=== PATIENT | male | born 1960 | race Caucasian/White ===

== ENCOUNTER 2016-08-03 14:30 | Emergency (ER) | payer OTHER ==
[2016-08-03 15:26] VITALS: BMI 24.6
[2016-08-03] MEDS ORDERED: ACETAMINOPHEN 1000 MG/100 ML VIAL (NON FORMULARY) IVPB ONE (16:10)
--- NOTE | 2016-08-03 16:23 | PDOC ---
History of Present Illness - History of Present Illness Initial Comments: 08/03/16 16:30 55-year-old male with past medical history of hypertension, alcohol abuse, acid reflux, liver disease, constipation, anxiety, gout, dementia, COPD, seizure disorder, sent from [place] for g-tube replacement. Patient is noted to be febrile on ED arrival. Remainder of patient's history is limited by secondary to his chronic medical conditions. <Brenna Grissom - Last Filed: 08/03/16 16:30> - General History Source: Intermediate Records Exam Limitations: No Limitations <Mack Agudelo - Last Filed: 08/03/16 19:10> - General Chief Complaint: G Tube Problem Stated Complaint: G TUBE PROBLEM Time Seen by Provider: 08/03/16 16:08 Past History <Brenna Grissom - Last Filed: 08/03/16 16:30> - Past Medical History Cardiac Disorders: Yes (artherosclerosis heart disease) COPD: Yes Dementia: Yes GI Disorders: Yes (gerd,hepatic failure, costipation) HTN: Yes Psychiatric Problems: Yes (bipolar, anxiety,depression) Seizures: Yes (convultions) Other medical history: etoh dependence,gout,seborrheic dermatitis - Psycho/Social/Smoking Cessation Hx Anxiety: No Suicidal Ideation: No Smoking History: Unknown if ever smoked Have you smoked in the past 12 months: No Information on smoking cessation initiated: No Hx Alcohol Use: No Drug/Substance Use Hx: No Substance Use Type: None <Mack Agudelo - Last Filed: 08/03/16 19:10> - Past Medical History Allergies/Adverse Reactions: Allergies Allergy/AdvReac Type Severity Reaction Status Date / Time Penicillins Allergy Verified 08/03/16 15:26 Home Medications: Ambulatory Orders Acetaminophen [Tylenol] 650 mg GT Q4H PRN 08/03/16 Albuterol 0.083% Nebulizer Angeline [Ventolin 0.083%] 1 neb NEB Q4H PRN 08/03/16 Aspirin [Hector Chewable] 81 mg GT DAILY 08/03/16 Clonazepam [Klonopin] 1 mg GT BID 08/03/16 Diltiazem [Cardizem -] 60 mg GT BID 08/03/16 Enalapril Maleate 5 mg GT DAILY 08/03/16 Ferrous Sulfate *Liquid* [Feosol] 7.5 ml GT DAILY 08/03/16 Guaifenesin [Caroline-Tussin] 200 mg GT Q6H PRN 08/03/16 Hydralazine HCl 50 mg GT TID 08/03/16 Lactulose 10 gm GT TID 08/03/16 Magnesium Hydroxide [Milk of Magnesia] 30 ml GT DAILY PRN 08/03/16 Metoprolol Tartrate 25 mg GT BID 08/03/16 Omeprazole Magnesium [Prilosec] 40 mg GT DAILY 08/03/16 Phosphorus #1 [Phospha 250 Neutral Tablet] 250 mg GT DAILY 08/03/16 Sodium Phosphate/Na Biphos [Fleet Adult Rectal Enema -] 133 ml RC DAILY PRN Thiamine HCl [B-1] 100 mg GT DAILY 08/03/16 Valproate Sodium Liquid [Depakene] 500 mg GT Q6H 08/03/16 Review of Systems - Review of Systems Able to Perform ROS?: No Comments:: 08/03/16 16:40 Unable to obtain ROS secondary to patient's chronic medical conditions. <Brenna Grissom - Last Filed: 08/03/16 16:30> *Physical Exam - Vital Signs Last Vital Signs Temp Pulse Resp BP Pulse Ox 100.7 F H 126 H 18 170/134 100 08/03/16 14:30 08/03/16 14:30 08/03/16 14:30 08/03/16 14:30 08/03/16 14:30 - Physical Exam Comments: 08/03/16 16:40 GENERAL: Awake and alert, at baseline mental status. Warm to touch. HEAD: No signs of trauma EYES: PERRLA, EOMI, sclera anicteric, conjunctiva clear ENT: Auricles normal inspection, hearing grossly normal, nares patent, oropharynx clear without exudates. Moist mucosa NECK: Normal ROM, supple, no lymphadenopathy, JVD, or masses LUNGS: Breath sounds equal, clear to auscultation bilaterally. No wheezes, and no crackles. HEART: Tachycardic rate, regular rate, normal S1 and S2, no murmurs, rubs or gallops. ABDOMEN: Soft, nontender, normoactive bowel sounds. No guarding, no rebound. PEG site clean, dry, intact. PEG in place. EXTREMITIES: Normal range of motion, no edema. No clubbing or cyanosis. No cords, erythema, or tenderness NEUROLOGICAL: Cranial nerves II through XII grossly intact. Gait deferred. SKIN: Warm, Dry, normal turgor, no rashes or lesions noted. <Brenna Grissom - Last Filed: 08/03/16 16:30> - Vital Signs Last Vital Signs Temp Pulse Resp BP Pulse Ox 100.7 F H 126 H 18 170/134 100 08/03/16 14:30 08/03/16 14:30 08/03/16 14:30 08/03/16 14:30 08/03/16 14:30 <Mack Agudelo - Last Filed: 08/03/16 19:10> Heart Score/ECG Review #1 ECG reviewed & interpreted by me at: 15:00 08/03/16 16:17 NSR 119, submm STD I, V4-V6, no LISA, left axis deviation, QTC 452 msec <Mack Agudelo - Last Filed: 08/03/16 19:10> ED Treatment Course - LABORATORY CBC & Chemistry Diagram: 08/03/16 16:35 08/03/16 16:35 - RADIOLOGY Radiology Studies Ordered: Category Date Time Status CHEST X-RAY PORTABLE* [RAD] Stat Radiology 08/03/16 16:09 Ordered <Mack Agudelo - Last Filed: 08/03/16 19:10> Medical Decision Making - Medical Decision Making 08/03/16 16:18 A portion of this note was documented by scribe services under my direction. I have reviewed the details of the note, within reason, and agree with the documentation with the following case summary and management plan written by me. Patient treated in the ED. Nursing notes are reviewed and incorporated into the medical decision-making. Vital signs reviewed. Peripheral IV access obtained by the nurse, laboratory studies are drawn and sent, reviewed and interpreted by myself. Vital Signs Temp Pulse Resp BP Pulse Ox 100.7 F H 126 H 18 170/134 100 08/03/16 14:30 08/03/16 14:30 08/03/16 14:30 08/03/16 14:30 08/03/16 14:30 55-year-old male with past medical history of hypertension, alcohol abuse, acid reflux, liver disease, constipation, anxiety, gout, dementia, COPD, seizure disorder, presents with G-tube replacement. However, upon arrival, patient is noted to have a temperature 100.7 degrees. We'll need to initiate adult sepsis protocol. Patient's history is limited by secondary to his chronic medical conditions. Differential includes occult pneumonia, urine tract infection, other infectious etiology. Reassess. 08/03/16 19:01 CBC, BMP 08/03/16 16:35 08/03/16 16:35 CMP Sodium 142 mmol/L (136-145) 08/03/16 16:35 Potassium 3.8 mmol/L (3.5-5.1) 08/03/16 16:35 Chloride 102 mmol/L (98-107) 08/03/16 16:35 Carbon Dioxide 31 mmol/L (21-32) 08/03/16 16:35 Anion Gap 9 (8-16) 08/03/16 16:35 BUN 9 mg/dL (7-18) 08/03/16 16:35 Creatinine 0.5 mg/dL (0.7-1.3) L 08/03/16 16:35 Creat Clearance w eGFR > 60 (>60) 08/03/16 16:35 Random Glucose 67 mg/dL (74-106) L 08/03/16 16:35 Lactic Acid 0.869 mmol/L (0.4-2.0) 08/03/16 16:35 Calcium 8.9 mg/dL (8.5-10.1) 08/03/16 16:35 Total Bilirubin 0.7 mg/dL (0.2-1.0) 08/03/16 16:35 AST 37 U/L (15-37) 08/03/16 16:35 ALT 18 U/L (12-78) 08/03/16 16:35 Alkaline Phosphatase 88 U/L (45-117) 08/03/16 16:35 Ammonia 39.37 umol/L (11-32) H 08/03/16 16:35 Creatine Kinase 550 IU/L (39-308) H 08/03/16 16:35 Creatine Kinase Index 2.0 % (0.0-5.0) 08/03/16 16:35 CK-MB (CK-2) 10.845 ng/ml (0.5-3.6) H 08/03/16 16:35 Troponin I 0.05 ng/ml (0.00-0.05) 08/03/16 16:35 Total Protein 7.6 g/dl (6.4-8.2) 08/03/16 16:35 Albumin 2.7 g/dl (3.4-5.0) L 08/03/16 16:35 Urine Test Results Urine Color Yellow 08/03/16 15:00 Urine Appearance Clear 08/03/16 15:00 Urine pH 8.0 (5.0-8.0) 08/03/16 15:00 Ur Specific Mohawk 1.011 (1.001-1.035) 08/03/16 15:00 Urine Protein 2+ (NEGATIVE) H 08/03/16 15:00 Urine Glucose (UA) Negative (NEGATIVE) 08/03/16 15:00 Urine Ketones Trace (NEGATIVE) H 08/03/16 15:00 Urine Blood 1+ (NEGATIVE) H 08/03/16 15:00 Urine Nitrite Negative (NEGATIVE) 08/03/16 15:00 Urine Bilirubin Negative (NEGATIVE) 08/03/16 15:00 Ur Leukocyte Esterase Negative (NEGATIVE) 08/03/16 15:00 Chest xray reviewed by me, pending official radiology read. No acute findings. GT replaced with 16 slovenian. Placement confirmed by me on abdominal xray with gastrograffin. Given that workup is negative, pt may potentially be having a viral syndrome. This was all conveyed to [facility] NIKO Valenzuela who understood the details. Agrees with transfer back. I discussed the physical exam findings, ancillary test results and final diagnoses with the patient. I answered all of the patient's questions. The patient was satisfied with the care received and felt comfortable with the discharge plan and treatment plan. The patient will call their primary care physician within 24 hours to arrange follow-up and will return to the Emergency Department with any new, persistant or worsening symptoms. 08/03/16 19:10 Was called by radiologist. States peg is in place, but should insert a few more cm. The PEG was inserted 3 more cm. Again, after flushing, air auscultated over stomach in PEG <Mack Agudelo - Last Filed: 08/03/16 19:10> *DC/Admit/Observation/Transfer - Attestations Scribe Attestion: 08/03/16 16:47 Documentation prepared by Brenna Grissom, acting as medical records tech for Mack Agudelo MD. <Brenna Grissom - Last Filed: 08/03/16 16:30> - Discharge Dispostion Admit: No <Mack Agudelo - Last Filed: 08/03/16 19:10> Diagnosis at time of Disposition: Viral syndrome Impaired oral gastric feeding tube Qualifiers: Encounter type: initial encounter Qualified Code(s): T85.598A - Other mechanical complication of other gastrointestinal prosthetic devices, implants and grafts, initial encounter - Discharge Dispostion Disposition: [facility]CTION FACILITY Condition at time of disposition: Stable - Referrals Referrals: Víctor Witt [Primary Care Provider] - - Patient Instructions Printed Discharge Instructions: How to Care for Your PEG Tube, DI for Viral Syndrome Additional Instructions: The G-tube was successfully replaced. It was confirmed by an x-ray. However, it was incidentally noted that you had a temperature 100.7 degrees. The blood work demonstrated no elevated white count and the urine was clean. There was no other findings. This may potentially be viral syndrome. At the correction, please continue to observe for the fever. If the fever worsens, please call the doctor or return to the ED.
[2016-08-03 16:49] LABS: BASOPHIL 0.4 % (0-2.0); EOSINOPHIL 0.2 % (0-4.5); MCH 30.3 pg (25.7-33.7); MCHC 33.6 g/dl (32.0-35.9); MEAN CELL VOLUME 90.2 fl (80-96); MEAN PLT VOLUME 8.1 fl (7.5-11.1); NEUTROPHILS 70.8 % (42.8-82.8); PLATELET COUNT 171 K/MM3 (134-434); RDW 15.2 % (11.9-15.9); WHITE BLOOD COUNT 6.6 K/mm3 (4.0-10.0)
[2016-08-03 17:01] LABS: INR 1.26 (0.82-1.09); PROTHROMBIN TIME (PATIENT) 13.9 SEC (9.98-11.88)
[2016-08-03 17:04] LABS: ACTIVATED PTT 37.2 SECONDS (26.9-34.4)
[2016-08-03] MEDS ORDERED: ACETAMINOPHEN INJECTION 100 ML IVPB ONE (17:14)
[2016-08-03 17:33] LABS: ALBUMIN 2.7 g/dl (3.4-5.0); ANION GAP 9 (8-16); BILIRUBIN,TOTAL 0.7 mg/dL (0.2-1.0); CALCIUM 8.9 mg/dL (8.5-10.1); CO2 31 mmol/L (21-32); COCKROFT - GAULT 156.64; CREATININE 0.5 mg/dL (0.7-1.3); GLUCOSE,RANDOM 67 mg/dL (74-106); SGPT/ALT 18 U/L (12-78); TOT PROT 7.6 g/dl (6.4-8.2)
[2016-08-03 17:36] LABS: ALK PHOS 88 U/L (45-117); TROPONIN I 0.05 ng/ml (0.00-0.05)
[2016-08-03 17:53] LABS: URINE APPEARANCE CLEAR; URINE BILIRUBIN NEGATIVE (NEGATIVE); URINE COLOR YELLOW; URINE GLUCOSE (UA) NEGATIVE (NEGATIVE); URINE KETONE TRACE (NEGATIVE); URINE LEUK ESTERASE NEGATIVE (NEGATIVE); URINE NITRITE NEGATIVE (NEGATIVE); URINE UROBILINOGEN NEGATIVE E.U./dl (0.2-1.0)
[2016-08-03 17:56] LABS: URINE BLOOD 1+ (NEGATIVE); URINE PROTEIN 2+ (NEGATIVE)
[2016-08-03 18:11] LABS: SGOT/AST 37 U/L (15-37)
[2016-08-03] MEDS ORDERED: DEXTROSE 50%-WATER 50 ML VIAL IVPUSH ONE (18:28)
[2016-08-03] MEDS ORDERED: DEXTROSE 50%-WATER 50 ML DISP.SYRIN ONE (18:48)
[2016-08-03 19:13] LABS: URINE MUCUS RARE; URINE RBC 12 /hpf (0-3); URINE WBC 1 /hpf (3-5)
[2016-08-03 21:19] VITALS: BP 163/105; PULSE 95; TEMP 99.2
--- NOTE | 2016-08-04 18:31 | EKG ---
Test Reason : Blood Pressure : / mmHG Vent. Rate : 119 BPM Atrial Rate : 119 BPM P-R Int : 158 ms QRS Dur : 092 ms QT Int : 322 ms P-R-T Axes : 054 012 098 degrees QTc Int : 452 ms SINUS TACHYCARDIA POSSIBLE LEFT ATRIAL ENLARGEMENT ABNORMAL ECG NO PREVIOUS ECGS AVAILABLE CLINICAL CORRELATION IS RECOMMENDED Confirmed by ANOOP BOYD, GLADIS ([id number]) on 08/04/2016 6:31:05 PM Referred By: Confirmed By:GLADIS DAVALOS MD
--- NOTE | 2016-08-05 13:57 | PDOC ---
Patient Follow-up (Call Back) - Post ED Follow - Up Condition at time of discharge: Stable Disposition at time of original discharge: CARE HOME FACILITY Reason for Call Back: Abnwl. Microbiology (08/03/16 blood culture anerobic bottle preliminary report gram stain + for cocci in clusters Micro called with these results awaiting sensitivity Dr. Witt PCP called to give report. Called Dr. Witt second time due to no call back after 90 minutes, pt. is one of his retirement pts.answering service got him on the phone he was told of results and will follow up with pt.)
== END 2016-08-03 21:19 ==
LOC: JER 14:30
PROC: 0D20XUZ Change Feeding Device in Upper Intestinal Tract, External Approach (ICD-10-PCS; principal; 2016-08-03)
PROC: 3E033NZ Introduction of Analgesics, Hypnotics, Sedatives into Peripheral Vein, Percutaneous Approach (ICD-10-PCS; 2016-08-03)
PROC: 3E033GC Introduction of Other Therapeutic Substance into Peripheral Vein, Percutaneous Approach (ICD-10-PCS; 2016-08-03)
DX: K94.29 Other complications of gastrostomy (principal); B34.9 Viral infection, unspecified; L21.8 Other seborrheic dermatitis; I10 Essential (primary) hypertension; F10.10 Alcohol abuse, uncomplicated; K21.9 Gastro-esophageal reflux disease without esophagitis; M10.9 Gout, unspecified; J44.9 Chronic obstructive pulmonary disease, unspecified; G40.909 Epilepsy, unspecified, not intractable, without status epilepticus; I25.10 Atherosclerotic heart disease of native coronary artery without angina pectoris
CPT/HCPCS: 36415; 43760; 71010-TC; 74000-TC; 80053; 81003; 81015; 82140; 82550; 82553; 83605; 84484; 85025; 85610; 85730; 87040; 87086; 87186; 93005; 93010; 96374; 99285-25

== ENCOUNTER 2018-02-23 14:19 | Emergency (ER) | payer OTHER ==
[2018-02-23 14:49] VITALS: BMI 25.0
[2018-02-23] MEDS ORDERED: ACETAMINOPHEN 1000 MG/100 ML VIAL (NON FORMULARY) IVPB ONE (15:36)
[2018-02-23] MEDS ORDERED: ACETAMINOPHEN INJECTION 100 ML IVPB ONE (15:45)
[2018-02-23 16:11] LABS: BASO % 0.6 % (0-2.0); EOS % 0.4 % (0-4.5); HEMATOCRIT 41.9 % (35.4-49); HEMOGLOBIN 14.5 GM/dL (11.7-16.9); LYMPH % 26.8 % (8-40); MCH 33.1 pg (25.7-33.7); MCHC 34.5 g/dl (32.0-35.9); MEAN CELL VOLUME 95.8 fl (80-96); MEAN PLT VOLUME 7.8 fl (7.5-11.1); MONO % 7.7 % (3.8-10.2); NEUT % 64.5 % (42.8-82.8); PLATELET COUNT 207 K/MM3 (134-434); RBC 4.37 M/mm3 (4.00-5.60); RDW 15.4 % (11.9-15.9); WHITE BLOOD COUNT 5.6 K/mm3 (4.0-10.0)
[2018-02-23 16:41] LABS: ALBUMIN 2.5 g/dl (3.4-5.0); ALK PHOS 79 U/L (45-117); ANION GAP 6 MMOL/L (8-16); BILIRUBIN,TOTAL 0.5 mg/dL (0.2-1); BLOOD UREA NITROGEN 19 mg/dL (7-18); CALCIUM 8.9 mg/dL (8.5-10.1); CHLORIDE 101 mmol/L (98-107); CO2 32 mmol/L (21-32); CREATININE 0.5 mg/dL (0.55-1.3); GLUCOSE,RANDOM 70 mg/dL (74-106); SGOT/AST 14 U/L (15-37); SGPT/ALT 11 U/L (13-61); SODIUM 139 mmol/L (136-145); TOT PROT 7.2 g/dl (6.4-8.2)
--- NOTE | 2018-02-23 17:09 | PDOC ---
History of Present Illness - General Chief Complaint: G Tube Problem Stated Complaint: REPLACE TUBE Time Seen by Provider: 02/23/18 15:15 History Source: EMS, [facility] Records, Old Records Exam Limitations: Dementia - History of Present Illness Initial Comments: 02/23/18 17:36 Siuda 57-year-old male with past medical history of hypertension, alcohol abuse , acid reflux, liver disease, constipation, anxiety, gout, dementia, COPD, seizure disorder, sent from [place] for g-tube replacement given leakage around the area. patient's history is limited by secondary to his chronic medical conditions and nonverbal status. Past History - Past Medical History Allergies/Adverse Reactions: Allergies Allergy/AdvReac Type Severity Reaction Status Date / Time Penicillins Allergy Verified 08/03/16 15:26 Home Medications: Ambulatory Orders Acetaminophen [Tylenol] 650 mg GT Q4H PRN 08/03/16 Albuterol 0.083% Nebulizer Angeline [Ventolin 0.083%] 1 neb NEB Q4H PRN 08/03/16 Aspirin [Hector Chewable] 81 mg GT DAILY 08/03/16 Clonazepam [Klonopin] 1 mg GT BID 08/03/16 Diltiazem [Cardizem -] 60 mg GT BID 08/03/16 Enalapril Maleate 10 mg GT DAILY 08/03/16 Ferrous Sulfate *Liquid* [Feosol] 7.5 ml GT DAILY 08/03/16 Guaifenesin [Caroline-Tussin] 200 mg GT Q6H PRN 08/03/16 Hydralazine HCl 50 mg GT TID 08/03/16 Lactulose 10 gm GT TID 08/03/16 Magnesium Hydroxide [Milk of Magnesia] 30 ml GT DAILY PRN 08/03/16 Metoprolol Tartrate 25 mg GT BID 08/03/16 Omeprazole Magnesium [Prilosec] 40 mg GT DAILY 08/03/16 Sod Phos Di, [place]/K Phos [place] [Phospha 250 Neutral Tablet] 250 mg GT DAILY 08/03 Sodium Phosphate/Na Biphos [Fleet Adult Rectal Enema -] 133 ml RC DAILY PRN Thiamine HCl [B-1] 100 mg GT DAILY 08/03/16 Valproate Sodium Liquid [Depakene] 500 mg GT Q6H 08/03/16 Cardiac Disorders: Yes (artherosclerosis heart disease) COPD: Yes Dementia: Yes GI Disorders: Yes (gerd,hepatic failure, costipation) HTN: Yes Psychiatric Problems: Yes (bipolar, anxiety,depression) Seizures: Yes (convultions) - Immunization History Immunization Up to Date: Yes - Suicide/Smoking/Psychosocial Hx Smoking History: Unknown if ever smoked Have you smoked in the past 12 months: No Information on smoking cessation initiated: No Hx Alcohol Use: No Drug/Substance Use Hx: No Substance Use Type: None Review of Systems - Review of Systems Able to Perform ROS?: No (nonverbal) *Physical Exam - Vital Signs Last Vital Signs Temp Pulse Resp BP Pulse Ox 99.1 F 107 H 18 202/99 H 96 02/23/18 14:46 02/23/18 14:46 02/23/18 14:46 02/23/18 14:55 02/23/18 14:46 - Physical Exam Comments: 02/23/18 17:36 General: awake, alert, nonverbal HEENT: NCAT, PERRL, EOMI, clear conjunctiva, anicteric, dry membranes, clear oropharynx, no oral lesions.. Neck: neck supple, FROM Resp: CTAB, normal and even respirations, no respiratory distress CVS: RRR, no murmurs, 2+ peripheral pulses throughout, no peripheral edema Abdomen: soft, nondistended, normoactive BS, G tube site in place, c/d/i with leakage around the site, no s/s purulence or infection around the tube site. Back: nontender, normal inspection and ROM MSK: no edema, MILLER x4, ROM intact. Contracted, increased tone throughout Neuro: alert, nonverbal. Contracted, increased tone throughout. Skin: warm and well perfused, cap refill <2 sec, normal color ED Treatment Course - LABORATORY CBC & Chemistry Diagram: 02/23/18 15:58 02/23/18 15:58 - ADDITIONAL ORDERS Additional order review: Laboratory Results 02/23/18 15:58 Sodium 139 Potassium 4.0 Chloride 101 Carbon Dioxide 32 Anion Gap 6 L BUN 19 H Creatinine 0.5 L Creat Clearance w eGFR > 60 Random Glucose 70 L Calcium 8.9 Total Bilirubin 0.5 AST 14 L ALT 11 L Alkaline Phosphatase 79 Total Protein 7.2 Albumin 2.5 L TSH Cancelled 02/23/18 15:58 RBC 4.37 MCV 95.8 MCHC 34.5 RDW 15.4 MPV 7.8 Neutrophils % 64.5 Lymphocytes % 26.8 D Monocytes % 7.7 Eosinophils % 0.4 D Basophils % 0.6 - RADIOLOGY Radiology Studies Ordered: Category Date Time Status CHEST X-RAY PORTABLE* [RAD] Stat Radiology 02/23/18 15:36 Taken - Medications Given in the ED: ED Medications Discontinued Medications Generic Name Dose Route Start Last Admin Trade Name Vanessa PRN Reason Stop Dose Admin Acetaminophen 1,000 mg 02/23/18 15:36 02/23/18 15:58 Ofirmev Injection - IVPB 02/23/18 15:37 1,000 mg ONCE ONE Administration Medical Decision Making - Medical Decision Making 02/23/18 17:36 Siuda 57 YOM with G tube malfunction. No abdominal sx. History limited due to dementia and nonverbal status. Vitals signs notable for hypertension, no fever. No acute distress in bed. tachycardia noted, but nontoxic appearing. BP normalizing. prior records with baseline mild tachycardia and HTN. Labs and lytes wnl, reassuring. CXR clear, unchanged from prior. Rotated, no s/s infection BP improving, no fever, nontoxic appearing, at baseline No G tube in the hospital despite attempts to call to OR and inpatient services. Blake 16 fr replaced in stoma, flushes and patent. AXR to confirm with gastroview, which I visualized on XR, then discharge back to [facility] with functioning blake in place with stopcock. f/u GI and PMD (Dr. Witt) to switch over for oil heaterman tubing. referral given. 02/23/18 18:53 *DC/Admit/Observation/Transfer Diagnosis at time of Disposition: Gastrostomy tube dysfunction - Discharge Dispostion Disposition: [facility]USTODIAL FACILITY Condition at time of disposition: Good Decision to Admit order: No - Referrals Referrals: [facility] [place] [Provider Group] [facility] [Provider Group] Bernard Jiménez DO [Staff Physician] - - Patient Instructions Printed Discharge Instructions: DI for Feeding Tube Exchange Additional Instructions: feeding tube replaced with 16 Malay blake catheter to maintain patency. should follow up definitively with primary doctor and GI for replacement with appropriate G tube blood work and xrays were normal, results provided. Xr confirmed placement. please keep the area covered clean and dry, put a stopcock over to keep from spilling or falling out. avoid pulling at the tubing. - Post Discharge Activity
[2018-02-23 18:21] VITALS: BP 166/102
[2018-02-23 19:16] VITALS: PULSE 96; TEMP 98.8
== END 2018-02-23 20:25 ==
LOC: JER 14:19
PROC: 0D20XUZ Change Feeding Device in Upper Intestinal Tract, External Approach (ICD-10-PCS; principal; 2018-02-23)
DX: T85.598A Other mechanical complication of other gastrointestinal prosthetic devices, implants and grafts, initial encounter (principal); K94.23 Gastrostomy malfunction; I10 Essential (primary) hypertension; J44.9 Chronic obstructive pulmonary disease, unspecified; K21.9 Gastro-esophageal reflux disease without esophagitis; G40.909 Epilepsy, unspecified, not intractable, without status epilepticus; F03.90 Unspecified dementia, unspecified severity, without behavioral disturbance, psychotic disturbance, mood disturbance, and anxiety; M10.9 Gout, unspecified; F41.9 Anxiety disorder, unspecified; F31.9 Bipolar disorder, unspecified; Z88.0 Allergy status to penicillin
CPT/HCPCS: 36415; 43760; 71045-TC-FY; 74018-TC-FY; 80053; 85025; 99283-25; J0131

== ENCOUNTER 2018-02-27 15:33 | Emergency (ER) | payer OTHER ==
--- NOTE | 2018-02-27 15:41 | PDOC ---
History of Present Illness - General Chief Complaint: G Tube Problem Stated Complaint: G TUE REPLACEMENT Time Seen by Provider: 02/27/18 15:37 History Source: EMS - History of Present Illness Initial Comments: 02/27/18 15:54 This is a 57-year-old male with past medical history of hypertension, alcohol abuse, acid reflux, liver disease, constipation, anxiety, gout, dementia, COPD, seizure disorder, who is non verbal, sent from [facility] for pulling out blake that was in place for a G tube. Patient was here on 02/23 for pulling out G tube, while in ER, a 16 Croatian blake was placed with stop cock. As per chart document, at that time there was no available G tubes in hospital. Today, he again pulled out blake from abdomen, which was re inserted at [place]. It is currently leaking clear fluid around site. NO other complaints as per EMS. Past History - Past Medical History Allergies/Adverse Reactions: Allergies Allergy/AdvReac Type Severity Reaction Status Date / Time Penicillins Allergy Verified 02/27/18 15:50 Home Medications: Ambulatory Orders Acetaminophen [Tylenol] 650 mg GT Q4H PRN 08/03/16 Albuterol 0.083% Nebulizer Angeline [Ventolin 0.083%] 1 neb NEB Q4H PRN 08/03/16 Aspirin [Hector Chewable] 81 mg GT DAILY 08/03/16 Clonazepam [Klonopin] 1 mg GT BID 08/03/16 Diltiazem [Cardizem -] 60 mg GT BID 08/03/16 Enalapril Maleate 10 mg GT DAILY 08/03/16 Ferrous Sulfate *Liquid* [Feosol] 7.5 ml GT DAILY 08/03/16 Guaifenesin [Caroline-Tussin] 200 mg GT Q6H PRN 08/03/16 Hydralazine HCl 50 mg GT TID 08/03/16 Lactulose 10 gm GT TID 08/03/16 Magnesium Hydroxide [Milk of Magnesia] 30 ml GT DAILY PRN 08/03/16 Metoprolol Tartrate 25 mg GT BID 08/03/16 Omeprazole Magnesium [Prilosec] 40 mg GT DAILY 08/03/16 Sod Phos Di, [place]/K Phos [place] [Phospha 250 Neutral Tablet] 250 mg GT DAILY 08/03 Sodium Phosphate/Na Biphos [Fleet Adult Rectal Enema -] 133 ml RC DAILY PRN Thiamine HCl [B-1] 100 mg GT DAILY 08/03/16 Valproate Sodium Liquid [Depakene] 500 mg GT Q6H 08/03/16 Cardiac Disorders: Yes (artherosclerosis heart disease) COPD: Yes Dementia: Yes GI Disorders: Yes (gerd,hepatic failure, costipation) HTN: Yes Psychiatric Problems: Yes (bipolar, anxiety,depression) Seizures: Yes (convultions) - Immunization History Immunization Up to Date: Yes - Suicide/Smoking/Psychosocial Hx Smoking History: Unknown if ever smoked Have you smoked in the past 12 months: No Hx Alcohol Use: No Drug/Substance Use Hx: No Substance Use Type: None Review of Systems - Review of Systems Able to Perform ROS?: No (non verbal) *Physical Exam - Physical Exam General Appearance: No: Apparent Distress Respiratory/Chest: positive: Lungs Clear, Normal Breath Sounds Cardiovascular: positive: Regular Rhythm, Regular Rate, S1, S2 Vascular Pulses: Carotid (R): 2+, Carotid (L): 2+, Dorsalis-Pedis (R): 2+, Doralis-Pedis (L): 2+ Gastrointestinal/Abdominal: positive: Normal Bowel Sounds, Other (with 16 romanian foly in G tube site with surrounding clear fluid coming from site). negative: Tender, Flat Musculoskeletal: negative: CVA Tenderness (R) Neurologic: positive: Other (non verbal at baseline) Medical Decision Making - Medical Decision Making 02/27/18 15:53 This is a 57 year old male with PMH indicated above, sent over by [facility], due to pulling out blake that was in place of a G tube that was inserted on 02/23. 16F G tube was placed. Abdominal kub with contrast confirmed placement. Will send back to [place] by ambulance. Instructions to follow up with GI and primary. *DC/Admit/Observation/Transfer Diagnosis at time of Disposition: Gastrointestinal tube present, Gastrostomy tube dysfunction - Discharge Dispostion Condition at time of disposition: Improved Decision to Admit order: No - Referrals Referrals: Tim Pruitt MD [Primary Care Provider] - - Patient Instructions Additional Instructions: Mr. Cole, your G tube has been re inserted. It is now safe to use. Please follow up with your warehouse general laborer and primary physician. - Post Discharge Activity
--- NOTE | 2018-02-27 15:45 | PDOC ---
Rapid Medical Evaluation Chief Complaint: Abscess Boil Time Seen by Provider: 02/27/18 15:37 Medical Evaluation: Allergies Allergy/AdvReac Type Severity Reaction Status Date / Time Penicillins Allergy Verified 08/03/16 15:26 02/27/18 15:39 02/27/18 15:41 02/27/18 15:51 02/27/18 17:39wrong chart/ Discharge Disposition - Diagnosis Gastrointestinal tube present, Gastrostomy tube dysfunction - Discharge Dispostion Condition at time of disposition: Improved - Referrals Referrals: Tim Pruitt MD [Primary Care Provider] - - Patient Instructions Additional Instructions: Mr. Cole, your G tube has been re inserted. It is now safe to use. Please follow up with your loss prevention lead and primary physician. - Post Discharge Activity
[2018-02-27 15:50] VITALS: BMI 25.9
[2018-02-27 15:57] VITALS: TEMP 99
--- NOTE | 2018-02-27 16:18 | PDOC ---
Attending Attestation - Resident Resident Name: Jen Carey - ED Attending Attestation I have performed the following: I have examined & evaluated the patient, The case was reviewed & discussed with the resident, I agree w/resident's findings & plan, Exceptions are as noted - HPI HPI: 02/27/18 16:17 Reviewed residents HPI - Physicial Exam PE: 02/27/18 16:17 Reviewed Residents PE - Medical Decision Making 02/27/18 16:18 G-tube replaced awaiting x-ray confirmation if contrast remains in bowel will discharge back to senior living.
[2018-02-27 20:41] VITALS: BP 157/97; PULSE 80
== END 2018-02-27 20:51 | disposition home or self-care (01) ==
LOC: JER 15:33
PROC: 0D20XUZ Change Feeding Device in Upper Intestinal Tract, External Approach (ICD-10-PCS; principal; 2018-02-27)
DX: K94.23 Gastrostomy malfunction (principal); I10 Essential (primary) hypertension; J44.9 Chronic obstructive pulmonary disease, unspecified; G40.909 Epilepsy, unspecified, not intractable, without status epilepticus; F03.90 Unspecified dementia, unspecified severity, without behavioral disturbance, psychotic disturbance, mood disturbance, and anxiety; K21.9 Gastro-esophageal reflux disease without esophagitis; M10.9 Gout, unspecified; R47.01 Aphasia
CPT/HCPCS: 74018-TC-FY; 99281-25

== ENCOUNTER 2018-02-27 22:37 | Emergency (ER) | payer OTHER ==
--- NOTE | 2018-02-27 22:51 | PDOC ---
History of Present Illness - General Chief Complaint: G Tube Problem Stated Complaint: GTUBE Time Seen by Provider: 02/27/18 22:43 History Source: EMS Exam Limitations: Dementia, Physical Impairment, Other (non verbal) - History of Present Illness Initial Comments: 02/27/18 23:14 This is a 57 year old male with past medical history of hypertension, alcohol abuse, acid reflux, liver disease, constipation, anxiety, gout, dementia, COPD, seizure disorder, who is non verbal, sent from [facility] for the second time today for G tube placement. As per EMS tube was not in place, they replaced with blake and sent him back to the emergency room. Previous G tube was confirmed by abdominal xray with contrast. Unknown how tube was dislodged. 02/27/18 23:15 Past History - Past Medical History Allergies/Adverse Reactions: Allergies Allergy/AdvReac Type Severity Reaction Status Date / Time Penicillins Allergy Verified 02/27/18 22:49 Home Medications: Ambulatory Orders Acetaminophen [Tylenol] 650 mg GT Q4H PRN 08/03/16 Albuterol 0.083% Nebulizer Angeline [Ventolin 0.083%] 1 neb NEB Q4H PRN 08/03/16 Aspirin [Hector Chewable] 81 mg GT DAILY 08/03/16 Clonazepam [Klonopin] 1 mg GT BID 08/03/16 Diltiazem [Cardizem -] 60 mg GT BID 08/03/16 Enalapril Maleate 10 mg GT DAILY 08/03/16 Ferrous Sulfate *Liquid* [Feosol] 7.5 ml GT DAILY 08/03/16 Guaifenesin [Caroline-Tussin] 200 mg GT Q6H PRN 08/03/16 Hydralazine HCl 50 mg GT TID 08/03/16 Lactulose 10 gm GT TID 08/03/16 Magnesium Hydroxide [Milk of Magnesia] 30 ml GT DAILY PRN 08/03/16 Metoprolol Tartrate 25 mg GT BID 08/03/16 Omeprazole Magnesium [Prilosec] 40 mg GT DAILY 08/03/16 Sod Phos Di, Door/K Phos Door [Phospha 250 Neutral Tablet] 250 mg GT DAILY 08/03 Sodium Phosphate/Na Biphos [Fleet Adult Rectal Enema -] 133 ml RC DAILY PRN Thiamine HCl [B-1] 100 mg GT DAILY 08/03/16 Valproate Sodium Liquid [Depakene] 500 mg GT Q6H 08/03/16 Cardiac Disorders: Yes (artherosclerosis heart disease) COPD: Yes Dementia: Yes GI Disorders: Yes (gerd,hepatic failure, costipation) HTN: Yes Psychiatric Problems: Yes (bipolar, anxiety,depression) Seizures: Yes (convultions) - Immunization History Immunization Up to Date: Yes - Suicide/Smoking/Psychosocial Hx Smoking History: Unknown if ever smoked Have you smoked in the past 12 months: No Hx Alcohol Use: No Drug/Substance Use Hx: No Substance Use Type: None Review of Systems - Review of Systems Able to Perform ROS?: No (non verbal) *Physical Exam - Vital Signs Last Vital Signs Temp Pulse Resp BP Pulse Ox 98.3 F 88 18 166/99 94 L 02/27/18 22:48 02/27/18 22:48 02/27/18 22:48 02/27/18 22:48 02/27/18 22:48 - Physical Exam General Appearance: Yes: Thin, Other Respiratory/Chest: positive: Lungs Clear, Normal Breath Sounds. negative: Crackles, Rhonchi, Stridor, Wheezing Cardiovascular: positive: Regular Rhythm, S1, S2, Tachycardia Gastrointestinal/Abdominal: positive: Normal Bowel Sounds, Flat, Other (with blake in place of G tube). negative: Tender Extremity: positive: Other (contracted) Integumentary: positive: Diaphoresis Neurologic: positive: Other (non verbal at basline) Medical Decision Making - Medical Decision Making 02/27/18 23:22 This is a 57 year old male with a medical history as above, including seizure, cognitive impairment, non verbal at baseline, who sent over multiple times with G tube placement and replacement. Sent over by [facility] for the second time today for replacement, due to patient taking out tube. Abdominal xray confirmed with contrast to be in place. Presley bandage wrapped around with new binder in place, away from patients hands. Send back to [facility]. *DC/Admit/Observation/Transfer Diagnosis at time of Disposition: Gastrostomy tube dysfunction - Discharge Dispostion Condition at time of disposition: Improved Decision to Admit order: No - Referrals - Patient Instructions Additional Instructions: MR. Cole, a new G tube has been placed and confirmed to be in place by xray. Please refrain from pulling out tube. Keep binder in place. - Post Discharge Activity
--- NOTE | 2018-02-27 22:53 | PDOC ---
Attending Attestation - Resident Resident Name: Jen Carey - ED Attending Attestation I have performed the following: I have examined & evaluated the patient, The case was reviewed & discussed with the resident, I agree w/resident's findings & plan, Exceptions are as noted - HPI HPI: 02/27/18 22:52 pt represents with a dislodged G tube pt was here several hours ago, had a G tube placed and confirmed was discharged back to NH, and returned immediately with disloodged tube. blake in place when he came back, abd binder in place pt in no distress abd exam: blake in place of ostomy 16F G tube replaced without difficulty will obtain KUB to confirm placement anticipate dc back to NH 02/27/18 23:[address] will dc back to NH - Physicial Exam PE: 02/28/18 01:58 see above - Medical Decision Making 02/28/18 01:58 see above
[2018-02-27 22:54] VITALS: BP 166/99; PULSE 88; TEMP 98.3; BMI 28.3
== END 2018-02-28 01:12 | disposition home or self-care (01) ==
LOC: JER 22:37
PROC: 0D20XUZ Change Feeding Device in Upper Intestinal Tract, External Approach (ICD-10-PCS; principal; 2018-02-27)
DX: Z43.1 Encounter for attention to gastrostomy (principal); I10 Essential (primary) hypertension; K21.9 Gastro-esophageal reflux disease without esophagitis; F41.9 Anxiety disorder, unspecified; F31.9 Bipolar disorder, unspecified; M10.9 Gout, unspecified; F03.90 Unspecified dementia, unspecified severity, without behavioral disturbance, psychotic disturbance, mood disturbance, and anxiety; J44.9 Chronic obstructive pulmonary disease, unspecified; G40.909 Epilepsy, unspecified, not intractable, without status epilepticus; R47.01 Aphasia
CPT/HCPCS: 74018-TC-FY; 99281-25; 99282-25

== ENCOUNTER 2018-03-03 19:36 | Emergency (ER) | payer OTHER ==
--- NOTE | 2018-03-03 19:57 | PDOC ---
History of Present Illness - General Chief Complaint: G Tube Problem Stated Complaint: G TUBE Time Seen by Provider: 03/03/18 19:56 - History of Present Illness Initial Comments: 03/03/18 20:33 The patient is a 57 year old male with a history of COPD, HTN, GERD, Dementia s/ p G tube who presents for G-tube replacement. Per EMS the patient pulled out his G-tube earlier today and it was replaced with a blake catheter to hold the tract open. The patient has had his G-tube replace multiple times recently due to the patient pulling out his g-tube. History and ROS is unobtainable due to the patient's dementia. Past History - Past Medical History Allergies/Adverse Reactions: Allergies Allergy/AdvReac Type Severity Reaction Status Date / Time Penicillins Allergy Verified 02/27/18 22:49 Home Medications: Ambulatory Orders Acetaminophen [Tylenol] 650 mg GT Q4H PRN 08/03/16 Albuterol 0.083% Nebulizer Angeline [Ventolin 0.083%] 1 neb NEB Q4H PRN 08/03/16 Aspirin [Hector Chewable] 81 mg GT DAILY 08/03/16 Clonazepam [Klonopin] 1 mg GT BID 08/03/16 Diltiazem [Cardizem -] 60 mg GT BID 08/03/16 Enalapril Maleate 10 mg GT DAILY 08/03/16 Ferrous Sulfate *Liquid* [Feosol] 7.5 ml GT DAILY 08/03/16 Guaifenesin [Caroline-Tussin] 200 mg GT Q6H PRN 08/03/16 Hydralazine HCl 50 mg GT TID 08/03/16 Lactulose 10 gm GT TID 08/03/16 Magnesium Hydroxide [Milk of Magnesia] 30 ml GT DAILY PRN 08/03/16 Metoprolol Tartrate 25 mg GT BID 08/03/16 Omeprazole Magnesium [Prilosec] 40 mg GT DAILY 08/03/16 Sod Phos Di, [place]/K Phos [place] [Phospha 250 Neutral Tablet] 250 mg GT DAILY 08/03 Sodium Phosphate/Na Biphos [Fleet Adult Rectal Enema -] 133 ml RC DAILY PRN Thiamine HCl [B-1] 100 mg GT DAILY 08/03/16 Valproate Sodium Liquid [Depakene] 500 mg GT Q6H 08/03/16 Cardiac Disorders: Yes (artherosclerosis heart disease) COPD: Yes Dementia: Yes GI Disorders: Yes (gerd,hepatic failure, costipation) HTN: Yes Psychiatric Problems: Yes (bipolar, anxiety,depression) Seizures: Yes (convultions) - Immunization History Immunization Up to Date: Yes - Suicide/Smoking/Psychosocial Hx Smoking History: Unknown if ever smoked Have you smoked in the past 12 months: No Hx Alcohol Use: No Drug/Substance Use Hx: No Substance Use Type: None Review of Systems - Review of Systems Able to Perform ROS?: No (Dementia) *Physical Exam - Physical Exam Comments: 03/03/18 20:35 General Appearance: Nourished. No Apparent Distress HEENT: No Pharyngeal Erythema, Tonsillar Exudate, Tonsillar Erythema Neck: No Cervical Lymphadenopathy Respiratory/Chest: Lungs Clear, Normal Breath Sounds. No Crackles, Rales, Rhonchi, Wheezing Cardiovascular: Regular Rhythm, Regular Rate. No Murmur, Gallops, Rubs Gastrointestinal/Abdominal: Normal Bowel Sounds, Soft. Blake Catheter in place in G-tube tract. No Guarding, Rebound, Tenderness Musculoskeletal: No CVA Tenderness Extremity: Normal Capillary Refill Integumentary: Normal Color, Dry, Warm Neurologic: Alert Procedures - Additional Procedures Additional Procedures: gastric tube replacement (G-tube was replaced with an 18 italian G tube successfully. Confirmed with xray) Medical Decision Making - Medical Decision Making 03/03/18 20:37 The patient is a 57 year old male with a history of COPD, HTN, GERD, Dementia s/ p G tube who presents for G-tube replacement. We replaced the patient's g-tube with an 18 italian tube successfully. We will obtain a abdominal plain film with gastrograffin to confirm placement and continue to monitor and reassess while here in the ED. 03/03/18 21:39 Plain film demonstrates g-tube in proper placement. We are comfortable discharging the patient home with primary care provider follow up. *DC/Admit/Observation/Transfer Diagnosis at time of Disposition: Gastrojejunostomy tube dislodgement - Discharge Dispostion Disposition: HOME Condition at time of disposition: Stable Decision to Admit order: No - Referrals Referrals: Tim Pruitt MD [Primary Care Provider] - - Patient Instructions Printed Discharge Instructions: How to Care for Your PEG Tube Additional Instructions: Please return to the ER if you experience concerning or worsening symptoms including worsening difficulty breathing, weakness, or chest pain, fever, abdominal pain. Your x-ray results show correct placement of your g-tube here in the ER. Please call to schedule a follow up appointment with your primary care provider within 2-3 days to discuss your ER visit and further management of your symptoms. - Post Discharge Activity
[2018-03-03 20:14] VITALS: TEMP 97.1; BMI 25.9
--- NOTE | 2018-03-03 20:59 | PDOC ---
Attending Attestation - Resident Resident Name: JessOz - ED Attending Attestation I have performed the following: I have examined & evaluated the patient, The case was reviewed & discussed with the resident, I agree w/resident's findings & plan, Exceptions are as noted - HPI HPI: 03/03/18 20:56 57 yo male BIBA from group home for G tube replacemnt. It had been pulled out prior to arrival pt has been to our ER 4 times in past week for same complaint - Physicial Exam PE: 03/03/18 20:59 57 yo male looking older than stated age BIBA for g tube replacement head ncat lungs no wheezing abd nontender, no cellulitis ,g tube site has no purulence lungs no crackles neuro alert but nonverbal - Medical Decision Making 03/03/18 21:02 g tube replaced
[2018-03-03 23:00] VITALS: BP 152/78; PULSE 64
== END 2018-03-03 22:54 | disposition home or self-care (01) ==
LOC: JER 19:36
PROC: 0D20XUZ Change Feeding Device in Upper Intestinal Tract, External Approach (ICD-10-PCS; principal; 2018-03-03)
DX: Z43.1 Encounter for attention to gastrostomy (principal); I25.10 Atherosclerotic heart disease of native coronary artery without angina pectoris; I10 Essential (primary) hypertension; J44.9 Chronic obstructive pulmonary disease, unspecified; G40.909 Epilepsy, unspecified, not intractable, without status epilepticus; F31.9 Bipolar disorder, unspecified; F41.9 Anxiety disorder, unspecified; F03.90 Unspecified dementia, unspecified severity, without behavioral disturbance, psychotic disturbance, mood disturbance, and anxiety; K21.9 Gastro-esophageal reflux disease without esophagitis
CPT/HCPCS: 43760; 74018-TC-FY; 99282-25